=== PATIENT | male | born 1950 | race Caucasian/White ===

== ENCOUNTER → 2020-08-26 15:58 | Outpatient (CLI) | payer OTHER, SELFPAY ==
--- NOTE | 2020-08-26 | DI.ECHO.S_ITS ---
[facility] +---------+ : : [address] [place] : : : : [id number] : : : : Phone: [phone]---------+ Echocardiogram Report + + :Name: LOUISA GAMING Study Date: 08/26/2020 Height: 66 in : :[facility] Weight: 205 lb : : Gender: Male BSA: 2.0 m2 : :: 1950 Age: 70 yrs BP: 130/84 mmHg: :Reason For Study: ENCOUNTER FOR GENERAL ADULT EXAMINATION : :Ordering Physician: DEANNA, : :GIACOMO Performed By: Michelle Gallegos : :Referring: GIACOMO HUERTA : + + Interpretation Summary Left ventricular systolic function appears normal with an estimated ejection fraction of 60 to 65% with a mild dyssynchronous contraction pattern due to the paced rhythm but no focal wall motion abnormality. Left ventricular wall thickness is mild to moderately increased in a concentric fashion. Left ventricular volumes are normal. Diastolic function is difficult to assess in the presence of a paced rhythm and mitral annular calcification. The right ventricle is at the upper limits of normal in size with systolic function at the lower limits of normal. Right ventricular systolic pressure is likely around 27 mmHg with a estimated CVP of 3 mmHg. Both atria are normal in size. There is extensive mitral annular calcification that extends onto the posterior mitral valve leaflet and into the subvalvular apparatus with mild calcification of the anterior leaflet which demonstrates fairly good mobility. There is likely mild mitral stenosis with a mean gradient of 4.5 mmHg and mild mitral regurgitation. There is mild tricuspid regurgitation but no other significant valvular abnormality. The ascending aorta is mild to moderately enlarged and the aortic arch is mildly enlarged. Procedure: A two-dimensional transthoracic echocardiogram with color flow and Doppler was performed. The study quality was technically difficult. A contrast injection of Definity was performed to improve assessment of LV function. Contrast was injected into an intravenous site in the right arm. The patient has a paced rhythm. The heart rate ranged between 82-90 bpm during the study. Left Ventricle: The left ventricle is normal in size. The estimated left ventricular end diastolic volume is 109 ml. There is mild-moderate concentric left ventricular hypertrophy. Left ventricular systolic function appears normal without focal wall motion abnormalities. The ejection fraction is estimated to be 60-65%. There is a mild dyssynchronous contraction pattern due to the paced rhythm. Diastolic function could not be accurately assessed due to paced rhythm. Right Ventricle: There is a pacemaker lead in the right ventricle. The right ventricle is at the upper limits of normal in size. Right ventricular systolic function is at the lower limits of normal. Atria: Both atria are normal in size. There is no Doppler evidence for an interatrial shunt. Mitral Valve: There is moderate mitral annular calcification. There is reduced mobility of the posterior mitral valve leaflet. Calcified mitral apparatus. The mitral valve mean gradient is 4.5 mmHg. There is mild mitral stenosis. There is mild mitral regurgitation. Aortic Valve: The aortic valve is trileaflet. The aortic valve is mildly calcified. The aortic valve opens well. There is no aortic valve stenosis. No aortic regurgitation is present. Tricuspid Valve: The tricuspid valve is not well visualized. There is mild tricuspid regurgitation. The right ventricular systolic pressure is estimated to be at least 27 mmHg based on an estimated right atrial pressure of 3 mm Hg. Pulmonic Valve: The pulmonic valve leaflets are thin and pliable; valve motion is normal. There is trace pulmonic regurgitation. Great Vessels: The aortic root is normal size. The ascending aorta is mild- moderately enlarged. The aortic arch is mildly enlarged. The IVC is of normal diameter and collapses greater than 50% with a sniff. This suggests a low right atrial pressure of 3 mm Hg. Pericardium/ Pleura There is no pericardial effusion. There is no pleural effusion. MMode/2D Measurements & Calculations LVIDd: 3.3 cm LVOT diam: 2.3 cm LVIDs: 2.5 cm Ao root diam: 3.5 cm FS: 25.3 % asc Aorta Diam: 3.9 cm EPSS: 0.76 cm Ao Arch Diam (Prox Trans): 3.1 cm IVSd: 1.4 cm LVPWd: 1.4 cm LV hunt. diameter/BSA (cm/m^2): 1.6 LV sys. diameter/BSA (cm/m^2): 1.2 LA A2 area: 19.8 cm2 RA long axis: 4.7 cm LA A4 area: 16.9 cm2 RA area: 13.5 cm2 LA length (vol): 5.0 cm RA vol: 33.1 ml LA vol: 56.9 ml RA : 16.4 ml/m2 LA vol index: 28.2 ml/m2 IVC diam: 1.4 cm RVD1 (basal): 3.9 cm TAPSE: 1.6 cm Doppler Measurements & Calculations Ao V2 max: 116.1 cm/sec LVOT Max Brody: 109.1 cm/sec Ao V2 mean: 77.7 cm/sec LV V1 max P.8 mmHg Ao max P.4 mmHg LV V1 VTI: 17.9 cm Ao mean P.7 mmHg NOEMÍ(I,D): 4.4 cm2 Ao V2 VTI: 16.9 cm NOEMÍ(V,D): 3.9 cm2 sev ratio: 1.1 NOEMÍ indexed to BSA (cm^2/m^2): 2.2 Med Peak E' Brody: 4.1 cm/sec TR max brody: 248.8 cm/sec Lat Peak E' Brody: 4.5 cm/sec TR max P.8 mmHg MVA(VTI): 2.3 cm2 PA V2 max: 57.6 cm/sec PA V2 mean: 39.6 cm/sec PA mean P.72 mmHg PA pr(Accel): 39.2 mmHg MV V2 mean: 97.6 cm/sec SV(LVOT): 74.6 ml MV mean P.5 mmHg MV V2 VTI: 31.9 cm Reading Physician:09:34 AM
== END ==
PROVIDERS: PCP Internal Medicine; Referring Provider Physician Assistant; Visit Provider Physician Assistant
DX: I08.1 Rheumatic disorders of both mitral and tricuspid valves (principal); I77.89 Other specified disorders of arteries and arterioles; Z95.0 Presence of cardiac pacemaker
CPT/HCPCS: 93306; Q9957